=== PATIENT | female | born 1950 | race Caucasian/White ===

== ENCOUNTER 2019-06-28 11:18 | Emergency (ER) | payer BC, MEDICARE ==
[2019-06-28 11:38] VITALS: BP 145/80
--- NOTE | 2019-06-28 11:59 | UC ---
Complaint Female HPI - HPI Summary HPI Summary: 68-year-old female who had some itching of her palms yesterday morning. She has been cooking using almond flour and she had some muffins that were made with it yesterday as well as today. She then worked out in her barn yesterday. She states today she has increased itching with mild hives. She said this morning her throat felt swollen but that has resolved. She feels like her upper right lip is mildly swollen. She denies any difficulty breathing. She does have family members that are allergic to different kinds of nuts. She changed her diet in April to be gluten-free and sugar-free and now uses almond flour for baking. She denies any shortness of breath or difficulty breathing at this point in time. She also has symptoms of urinary tract infection with urinary frequency, burning. She has a history of urinary tract infections and has had a complete workup with a urologist. She states the only antibiotic that works for her is Cipro twice a day for 10 days. Her last most recent urinary tract infection was in January 2019. She denies any fever or chills or back pain. - History Of Current Complaint Chief Complaint: UCRash Stated Complaint: ALLERGIC REACTION Time Seen by Provider: 06/28/19 11:39 Hx Obtained From: Patient ?: No Onset/Duration: Gradual Onset, Still Present - UTI symptoms are still present, the allergic reaction symptoms are mildly improving Timing: Constant Severity Initially: Mild Severity Currently: Mild Pain Intensity: 4 Character: Burning Aggravating Factor(s): Urination Alleviating Factor(s): Nothing Associated Signs And Symptoms: Positive: Negative - Allergies/Home Medications Allergies/Adverse Reactions: Allergies Allergy/AdvReac Type Severity Reaction Status Date / Time amoxicillin [From Augmentin] Allergy Rash Verified 06/28/19 11:40 clavulanic acid Allergy Rash Verified 06/28/19 11:40 [From Augmentin] propoxyphene [From Darvon] Allergy Nausea And Verified 06/28/19 11:40 Vomiting Sulfa (Sulfonamide Allergy Rash Verified 06/28/19 11:40 Antibiotics) CT scan injection Allergy Swelling Uncoded 06/28/19 11:40 Of Face,Lips,& Throat Home Medications: Home Medications Calcium Carb/Vitamin D3/Vit K1 [Calcium + D] 2 chw PO DAILY 06/28/19 [History Confirmed 06/28/19] Ciprofloxacin TAB* [Cipro 500 MG TAB*] 500 mg PO BID 10 Days #20 tab 06/28/19 [ Rx] Cranberry Fruit Extract [Hm Cranberry Ultra Streng] 1,500 mg PO DAILY 06/28/19 [ History Confirmed 06/28/19] Irbesartan [Avapro] 75 mg PO DAILY 06/28/19 [History Confirmed 06/28/19] Multivitamin/Iron/Folic Acid [Centrum Women Tablet] 1 each PO DAILY 06/28/19 [ History Confirmed 06/28/19] Chilmark-3 Fatty Acids [Chilmark-3] 1,000 mg PO DAILY 06/28/19 [History Confirmed ] predniSONE 10 mg TAB [Deltasone 10 MG TAB*] 10 mg PO DAILY 12 Days #30 tab 06/27 [Rx] PMH/Surg Hx/FS Hx/Imm Hx Previously Healthy: Yes GI/ History: Gastroesophageal Reflux, Diverticulitis Cancer History: Breast Cancer - Surgical History Surgical History: Yes Surgery Procedure, Year, and Place: T&A. hyster. reconstructive pelvic surgery. R breast bx - Family History Known Family History: Positive: Unknown - Social History Lives: With Family Alcohol Use: None Substance Use Type: None Smoking Status (MU): Never Smoked Tobacco Review of Systems All Other Systems Reviewed And Are Negative: Yes Skin: Positive: Other - Mild hives on distal forearms. Patient states her throat felt swollen this morning but that has resolved. She states the right upper lip is mildly swollen. Genitourinary: Positive: Dysuria, Frequency, Urgency Is Patient Immunocompromised?: No Physical Exam Triage Information Reviewed: Yes Appearance: Well-Appearing, No Pain Distress, Well-Nourished Vital Signs: Initial Vital Signs Temp 98.8 F 06/28/19 11:29 Pulse 95 06/28/19 11:29 Resp 18 06/28/19 11:29 BP 145/80 06/28/19 11:29 Pulse Ox 98 06/28/19 11:29 Vital Signs Reviewed: Yes Eyes: Positive: Conjunctiva Clear ENT: Positive: Hearing grossly normal, Pharynx normal, TMs normal, Uvula midline Neck: Positive: Supple, Nontender, No Lymphadenopathy Respiratory: Positive: Lungs clear, Normal breath sounds, No respiratory distress, No accessory muscle use Cardiovascular: Positive: RRR, No Murmur, Pulses Normal, Brisk Capillary Refill Abdomen Description: Positive: Nontender, No Organomegaly, Soft. Negative: CVA Tenderness (R), CVA Tenderness (L), Distended, Guarding, Hernia @, Hepatomegaly , Splenomegaly Bowel Sounds: Positive: Present Musculoskeletal Exam: Normal Neurological Exam: Normal Psychological Exam: Normal Skin: Positive: Other - Mild hives distal forearms, not raised. Patient also has mild hives on her upper abdomen. The right upper lip is very minimally swollen and hardly noticeable. Complaint Female Dx - Course Course Of Treatment: Urinalysis: Positive for leukocytes, nitrites, and blood. The patient is comfortable here and in no distress. She had not taken any Benadryl at home. She prefers not to have an injection therefore prednisone taper was given. Because of her history of urinary tract infections I am going to treat her with the Cipro twice a day for 10 days. She denies any cardiac problems. She is also to continue her cranberry tablets which she takes daily to prevent urinary tract infections. We also discussed getting rid of any perfumed toilet paper and showering in the genital area with water and not perfumed soaps. I advised her we would call her if the urine culture comes back showing any resistance to Cipro. She was also advised to stop using the almond flour. - Differential Dx/Diagnosis Provider Diagnosis: UTI (urinary tract infection), Allergic reaction Discharge ED - Sign-Out/Discharge Documenting (check all that apply): Patient Departure All imaging exams completed and their final reports reviewed: No Studies - Discharge Plan Condition: Good Disposition: HOME Prescriptions: Ciprofloxacin TAB* [Cipro 500 MG TAB*] 500 mg PO BID 10 Days #20 tab predniSONE 10 mg TAB [Deltasone 10 MG TAB*] 10 mg PO DAILY 12 Days #30 tab Patient Education Materials: Urinary Tract Infection in Women (DC), Urticaria ( ED) Referrals: Harjinder Ch MD [Primary Care Provider] - Additional Instructions: Increase fluids, take your prednisone with food and take it for the entire prescription. Definite follow-up to the emergency room if you develop any difficulty breathing, feeling like your throat is closing or worsening symptoms. Definite follow-up with your primary care provider if no improvement in 2-3 days. - Billing Disposition and Condition Condition: GOOD Disposition: Home
== END 2019-06-28 12:15 | disposition home or self-care (01) ==
LOC: UCCORT 11:18
DX: N39.0 Urinary tract infection, site not specified (principal); T78.40XA Allergy, unspecified, initial encounter; X58.XXXA Exposure to other specified factors, initial encounter; Y92.9 Unspecified place or not applicable; Z88.0 Allergy status to penicillin; Z88.2 Allergy status to sulfonamides; Z88.8 Allergy status to other drugs, medicaments and biological substances; Z85.3 Personal history of malignant neoplasm of breast
CPT/HCPCS: 81003; 87077; 87086; 87186; 99202; G0463